=== PATIENT | male | born 1945 | race Caucasian/White ===

== ENCOUNTER → 2016-07-10 | Outpatient (CLI) | payer OTHER ==
--- NOTE | 2016-07-10 15:34 | US ---
Retroperitoneal Sonogram, complete, with duplex Doppler analysis History: Status post correction of bladder diverticulum, poor renal function, laser and surgical TURP , testicular hypofunction Comparison: October 05, 2014 Findings: The kidneys are stable with unchanged smooth cortical thinning involving the lower pole of both kidneys. There is stable mild caliectasis of the left lower pole which is likely related to scar ring. There is no new hydronephrosis or perinephric fluid. There is no obvious stone formation. The r ight kidney measures 10.2 x 5.1 x 4.8 cm and the left kidney 10 x 3.3 x 4.8 cm. Right renal volume = 130 mL thin left renal volume 84 mL's. After voiding there is no change in the degree of left lower p ole mild caliectasis, or other collecting systems of either kidney. The prostate gland measures 4.3 x 2.7 x 3.2 cm . , A small right posterolateral urinary bladder diverticulum is stable and not associa gary with stone formation. There is chronic urinary bladder wall trabeculation. Bilateral ureteral jet s are seen in the urinary bladder. Prevoid volume = 167 mL. Postvoid residual = 189 mL. Impression: Stable since September 2014. Bilateral renal cortical thinning may represent scarring related to prior infection and/or ischemia. If the patient is hypertensive, evaluation for renal artery sten osis might be considered.
== END ==
LOC: FIMAGING 14:04
PROVIDERS: ATTEND Specialist
DX: E29.1 Testicular hypofunction (principal); R93.49 Abnormal radiologic findings on diagnostic imaging of other urinary organs; Z98.890 Other specified postprocedural states

== ENCOUNTER → 2016-08-21 | Outpatient (CLI) | payer OTHER | LOC: FIMAGING 10:58 | PROVIDERS: ATTEND Internal Medicine | DX: R51 Headache (principal); M62.81 Muscle weakness (generalized) ==

== ENCOUNTER 2018-03-08 14:50 | Inpatient (IN) | payer OTHER ==
--- NOTE | 2018-03-08 15:09 | EDPHY ---
H & P Stated Complaint: itchy weepy rash/redness r forearm Time Seen by Provider: 03/08/18 14:57 HPI/ROS: CHIEF COMPLAINT: Itching weeping rash right forearm HISTORY OF PRESENT ILLNESS: 72-year-old male history of chronic kidney dysfunction [facility] complaining of highly pruritic, weeping right wrist lesion since working in his garden. He has noticed new proximally ascending erythematous streaking over the past day. No fever or chills. No nausea or vomiting. No myalgias. No flu-like symptoms. No chest pain. REVIEW OF SYSTEMS: 10 systems reviewed and negative with the exception of the elements mentioned in the history of present illness PAST MEDICAL & SURGICAL HISTORY: Chronic kidney disease, most recent creatinine 2.7. SOCIAL HISTORY: Lives by himself. Nonsmoker PHYSICAL EXAM (Prior to examination, patient consented to physical exam, hands were washed and my usual and customary physical exam procedures followed) 1) GENERAL: Well-developed, well-nourished, alert and oriented. Appears to be in no acute distress. Smiling appears well 2) HEAD: Normocephalic, atraumatic 3) HEENT: Pupils equal, round, reactive to light bilaterally. Sclera anicteric. 4) NECK: Full range of motion, no meningeal signs. 5) LUNGS: Clear auscultation bilaterally, no wheezes, no rhonchi, no retractions. 6) HEART: Regular rate and rhythm, no murmur, no heave, no gallop. 7) ABDOMEN: No guarding, 8) MUSCULOSKELETAL: Right upper extremity: Weeping vesicular rash to right wrist with excoriation noted. Erythema extending to mid bicep. No crepitus. Brisk pulses and capillary refill distally. 9) BACK: No visual or palpable abnormality. 10) SKIN: No rash, no petechiae. 11) Psychiatric: Patient is oriented X 3, there is no agitation. DIFFERENTIAL DIAGNOSIS: In no particular order including but not limited to compartment syndrome, cellulitis, necrotizing fasciitis, contact dermatitis - Personal History Current Tetanus Diphtheria and Acellular Pertussis (TDAP): Yes - Medical/Surgical History Hx Asthma: Yes Hx Chronic Respiratory Disease: No Hx Diabetes: No Hx Cardiac Disease: No Hx Renal Disease: Yes Hx Cirrhosis: No Hx Alcoholism: No Hx HIV/AIDS: No Hx Splenectomy or Spleen Trauma: No Other PMH: kidney failure on kidney transplant list - Social History Smoking Status: Never smoked Constitutional: Initial Vital Signs Temperature (C) 36.5 C 03/08/18 14:53 Heart Rate 70 03/08/18 14:53 Respiratory Rate 17 03/08/18 14:53 Blood Pressure 139/82 H 03/08/18 14:53 O2 Sat (%) 6 L 03/08/18 14:53 O2 Delivery Mode Room Air Allergies/Adverse Reactions: No Known Allergies Allergy (Verified 03/08/18 14:53) Home Medications: Medication Instructions Recorded Furosemide 03/29/14 Lisinopril 03/29/14 Mult Vit 03/29/14 Psyllium Husk 03/29/14 Sodium Bicarbonate 03/29/14 Viagra 03/29/14 Vit D3/Folic Acid/B2/B6/B12 03/29/14 Medical Decision Making ED Course/Re-evaluation: 3:30 p.m.: Patient was also seen and examined by Dr. Noel in the ER. Of concern in this patient is erythema extending proximally from his more than likely poison antione dermatitis site. Recommend checking laboratory studies, IV antibiotics. 3:50 p.m.: Consultation with hospitalist Dr. Negron who will admit patient for right upper extremity cellulitis. Awaiting patient's chemistry results to dose IV antibiotics based on his chronic kidney disease history 4:04 p.m.: Calculated original Cockcroft-Gault creatinine clearance of 23 at this time. Per dosing recommendations for cefazolin, creatinine clearance between 11-34 give usual dose x1 then decrease dose 50%, give [id number] - Data Points Laboratory Results: Laboratory Results 03/08/18 15:33 03/08/18 15:33 03/08/18 03/08/18 15:33 15:33 WBC 12.13 10^3/uL H 10^3/uL (3.80-9.50) RBC 4.89 10^6/uL 10^6/uL (4.40-6.38) Hgb 15.9 g/dL g/dL (13.7-17.5) Hct 47.2 % % (40.0-51.0) MCV 96.5 fL fL (81.5-99.8) MCH 32.5 pg pg (27.9-34.1) MCHC 33.7 g/dL g/dL (32.4-36.7) RDW 14.8 % % (11.5-15.2) Plt Count 281 10^3/uL 10^3/uL (150-400) MPV 9.2 fL fL (8.7-11.7) Neut % (Auto) 77.0 % H % (39.3-74.2) Lymph % (Auto) 12.2 % L % (15.0-45.0) Trigg % (Auto) 6.4 % % (4.5-13.0) Eos % (Auto) 4.0 % % (0.6-7.6) Baso % (Auto) 0.2 % L % (0.3-1.7) Nucleat RBC Rel Count 0.0 % % (0.0-0.2) Absolute Neuts (auto) 9.34 10^3/uL H 10^3/uL (1.70-6.50) Absolute Lymphs (auto) 1.48 10^3/uL 10^3/uL (1.00-3.00) Absolute Monos (auto) 0.78 10^3/uL 10^3/uL (0.30-0.80) Absolute Eos (auto) 0.48 10^3/uL H 10^3/uL (0.03-0.40) Absolute Basos (auto) 0.02 10^3/uL 10^3/uL (0.02-0.10) Absolute Nucleated RBC 0.00 10^3/uL 10^3/uL (0-0.01) Immature Gran % 0.2 % % (0.0-1.1) Immature Gran # 0.03 10^3/uL 10^3/uL (0.00-0.10) Sodium 138 mEq/L mEq/L (135-145) Potassium 4.9 mEq/L mEq/L (3.3-5.0) Chloride 102 mEq/L mEq/L (97-110) Carbon Dioxide 24 mEq/l mEq/l (22-31) Anion Gap 12 mEq/L mEq/L (8-16) BUN 44 mg/dL H mg/dL (7-23) Creatinine 3.0 mg/dL H mg/dL (0.7-1.3) Estimated GFR 21 Glucose 99 mg/dL mg/dL (70-100) Calcium 9.6 mg/dL mg/dL (8.5-10.4) Departure - Departure Disposition: [facility] Inpatient Acute Clinical Impression: Right arm cellulitis Condition: Fair
[2018-03-08 15:42] LABS: PLATELET COUNT 281 10^3/uL (150-400)
[2018-03-08] MEDS ORDERED: HYDROCODONE/APAP 5/325 TAB PO PRN (17:46)
[2018-03-08] MEDS ORDERED: oxyCODONE IR 5 MG TAB PO PRN (17:46)
[2018-03-08] MEDS ORDERED: ONDANSETRON DISINTEGRATING 4 MG TAB PO PRN (17:46)
[2018-03-08] MEDS ORDERED: ACETAMINOPHEN 325 MG TAB PO PRN (17:46)
[2018-03-08] MEDS ORDERED: ONDANSETRON 4 MG/2 ML VIAL IVP PRN (17:46)
--- NOTE | 2018-03-08 17:52 | PDGENHP ---
History and Physical - Chief Complaint RUE redness, swelling - History of Present Illness 72 yo male with h/o CKD due to bladder diverticula presents to ED from his urologist's clinic with RUE redness, pain and swelling. He notes he developed a blistery rash yesterday after watering his garden. No known exposure to poison oak. The rash was pruritic. Today, it became more red and spread proximal to his elbow. He denies fevers, chills or sweats. He saw his urologist for regular follow up who noted a RUE cellulitis and sent the patient to the ED. He gives a h/o shingles. He has a cat, but denies any recent scratches or bites. In the ED, a culture was obtained. Blood cultures were drawn and he received a dose of IV Ancef. He is admitted for further management. History Information - Allergies/Home Medication List Allergies/Adverse Reactions: No Known Allergies Allergy (Verified 03/08/18 14:53) Home Medications: Acetamn/Diphenhydramine 500/25 [Tylenol PM (*)] 2 each PO HS PRN 03/08/18 [Last Taken 03/01/18] Aspirin [Aspirin 81mg (*)] 162 mg PO DAILY 03/08/18 [Last Taken 03/08/18] Atorvastatin Calcium [Lipitor 10 mg (*)] 10 mg PO DAILY 03/08/18 [Last Taken ] Calcitriol [Calcitriol (*)] 0.25 mcg PO MOFR@0900 03/08/18 [Last Taken 03/07/18] Cholecalciferol (Vitamin D3) [Vitamin D3] 2,000 unit PO DAILY 03/08/18 [Last Taken 03/08/18] Fluticasone Nasal [Flonase Nasal Henderson (RX)] 1 sprays NASAL DAILY PRN 03/08/18 [ Last Taken Unknown] Lisinopril [Lisinopril] 5 mg PO DAILY 03/08/18 [Last Taken 03/08/18] Loperamide HCl [Imodium 2 mg (*)] 2 mg PO DAILY 03/08/18 [Last Taken 03/08/18] Psyllium Husk [Fiber Laxative] 1.56 gm PO BID 03/08/18 [Last Taken 03/08/18 08: 00] Sildenafil Citrate [Viagra] 100 mg PO DAILY PRN 03/08/18 [Last Taken Unknown] Sodium Bicarbonate [Na Bicarb] 1,300 mg PO BID 03/08/18 [Last Taken 03/08/18 08: 00] I have personally reviewed and updated: family history, medical history, social history, surgical history - Past Medical History Additional medical history: CKD - baseline Cr ~2.8 per pt. Hyperlipidemia. H/ O bladder diverticula - Surgical History Additional surgical history: bladder surgery - Family History Positive for: non-pertinent - Social History Smoking Status: Never smoked Alcohol Use: Other (one drink daily) Drug Use: None Additional social history: Lives in [place], has cats Review of Systems Review of Systems: ROS: 10pt was reviewed & negative except for what was stated in HPI & below Physical Exam Physical Exam: Temp Pulse Resp BP Pulse Ox 36.5 C 72 16 112/77 96 03/08/18 17:19 03/08/18 17:19 03/08/18 17:19 03/08/18 17:19 03/08/18 17:19 Constitutional: no apparent distress Eyes: PERRL Ears, Nose, Mouth, Throat: moist mucous membranes Cardiovascular: regular rate and rhythym Respiratory: no respiratory distress, clear to auscultation Gastrointestinal: normoactive bowel sounds, soft, non-tender abdomen Skin: warm, other (RUE with erythema extending proximal to elbow with associated edema and clustered vesicular rash on proximal RUE, some oozing vesicles) Musculoskeletal: full muscle strength Neurologic: AAOx3 Psychiatric: interacting appropriately Lab Data & Imaging Review 03/08/18 15:33 03/08/18 15:33 WBC 12.13 10^3/uL (3.80-9.50) H 03/08/18 15:33 RBC 4.89 10^6/uL (4.40-6.38) 03/08/18 15:33 Hgb 15.9 g/dL (13.7-17.5) 03/08/18 15:33 Hct 47.2 % (40.0-51.0) 03/08/18 15:33 MCV 96.5 fL (81.5-99.8) 03/08/18 15:33 MCH 32.5 pg (27.9-34.1) 03/08/18 15:33 MCHC 33.7 g/dL (32.4-36.7) 03/08/18 15:33 RDW 14.8 % (11.5-15.2) 03/08/18 15:33 Plt Count 281 10^3/uL (150-400) 03/08/18 15:33 MPV 9.2 fL (8.7-11.7) 03/08/18 15:33 Neut % (Auto) 77.0 % (39.3-74.2) H 03/08/18 15:33 Lymph % (Auto) 12.2 % (15.0-45.0) L 03/08/18 15:33 Stearns % (Auto) 6.4 % (4.5-13.0) 03/08/18 15: Eos % (Auto) 4.0 % (0.6-7.6) 03/08/18 15:33 Baso % (Auto) 0.2 % (0.3-1.7) L 03/08/18 15: Nucleat RBC Rel Count 0.0 % (0.0-0.2) 03/08/18 15:33 Absolute Neuts (auto) 9.34 10^3/uL (1.70-6.50) H 03/08/18 15:33 Absolute Lymphs (auto) 1.48 10^3/uL (1.00-3.00) 03/08/18 15:33 Absolute Monos (auto) 0.78 10^3/uL (0.30-0.80) 03/08/18 15:33 Absolute Eos (auto) 0.48 10^3/uL (0.03-0.40) H 03/08/18 15:33 Absolute Basos (auto) 0.02 10^3/uL (0.02-0.10) 03/08/18 15:33 Absolute Nucleated RBC 0.00 10^3/uL (0-0.01) 03/08/18 15: Immature Gran % 0.2 % (0.0-1.1) 03/08/18 15: Immature Gran # 0.03 10^3/uL (0.00-0.10) 03/08/18 15:33 Sodium 138 mEq/L (135-145) 03/08/18 15:33 Potassium 4.9 mEq/L (3.3-5.0) 03/08/18 15:33 Chloride 102 mEq/L (97-110) 03/08/18 15:33 Carbon Dioxide 24 mEq/l (22-31) 03/08/18 15:33 Anion Gap 12 mEq/L (8-16) 03/08/18 15:33 BUN 44 mg/dL (7-23) H 03/08/18 15:33 Creatinine 3.0 mg/dL (0.7-1.3) H 03/08/18 15:33 Estimated GFR 21 03/08/18 15:33 Glucose 99 mg/dL (70-100) 03/08/18 15:33 Calcium 9.6 mg/dL (8.5-10.4) 03/08/18 15:33 Assessment & Plan Assessment: RUE cellulitis (Acute) - suspect secondary bacterial infection in setting of vesicular rash, consider poison oak or shingles. -IV Ancef, renally dosed -Blood cultures pending -swab open vesicle for HSV -if increased swelling, consider u/s of RUE to r/o fluid collection CKD - Cr near baseline per pt, ~2.8. Followed by Dr. Kent, on transplant list H/O bladder diverticulum - followed by Dr. Dasilva. Stable. Full code Dispo - admit to inpt, anticipate >48 hrs hospitalization for management of RUE cellulitis extending proximal to elbow
[2018-03-08] MEDS ORDERED: FLUTICASONE NASAL 120 SPRAYS/16 GM MDI EACHNARE PRN (17:57)
[2018-03-08] MEDS ORDERED: ACETAMN/DIPHENHYDRAMINE 500/25MG TAB PO PRN (17:57)
[2018-03-08] MEDS: SODIUM BICARBONATE 650 MG TAB PO SCH (20:23)
[2018-03-08] MEDS: PSYLLIUM METAMUCIL 1 PKT PO SCH ×2 (20:23→20:25)
[2018-03-08] MEDS ORDERED: ceFAZolin 2 GM/DEXTROSE 100 ML IV SCH (23:00)
[2018-03-09 05:34] LABS: PLATELET COUNT 221 10^3/uL (150-400)
[2018-03-09 08:26] VITALS: BP 122/78
[2018-03-09] MEDS: SODIUM BICARBONATE 650 MG TAB PO SCH (08:28)
[2018-03-09] MEDS: PSYLLIUM METAMUCIL 1 PKT PO SCH (08:42)
[2018-03-09] MEDS ORDERED: ATORVASTATIN CALCIUM 10 MG TAB PO SCH (09:00)
[2018-03-09] MEDS ORDERED: LISINOPRIL 5 MG TAB PO SCH (09:00)
[2018-03-09] MEDS ORDERED: CHOLECALCIFEROL VIT D3 2,000 UNITS TAB/CAP PO SCH (09:00)
[2018-03-09] MEDS ORDERED: ASPIRIN 81 MG CHEWABLE TAB PO SCH (09:00)
--- NOTE | 2018-03-09 10:19 | PDDCSUM ---
Discharge Summary Discharge Summary: This is a 72 yo male with hx of CKD who was admitted due to right arm cellulitis. He had been doing some gardening the day prior to admission. He remained afebrile and VSS were stable during his hospitalization. He was given Ancef which he tolerated well and with good results. on the morning of discharge he has minimal right arm erythema with no clear bordering, no induration, no papules or vesicles. He remains afebrile and fees his normal self. He was given the option to cont another day of IV antibiotics vs d/c home with oral abx and he has chosen discharge. As he responded to IV Cefazolin, he will be transitioned to Oral Keflex which will be renally dosed at 250mg po TID x 7 days. He will see his pcp within the next 7 days. Of note, blood cultures and HSV cultures remain negative thus far. Cr is still at baseline DDX: RUE cellulitis (Acute) - CKD - Cr near baseline per pt, ~2.8. Followed by Dr. Kent. No longer on the transplant list H/O bladder diverticulum - followed by Dr. Dasilva. Stable. Exam: NAD AAOX3 RRR MINIMAL RIGHT SIDED ARM ERYTHEMA. NO VISIBLE SWELLING. NO PAPULES OR VESICLES. MEDS: SEE MED REC F/U: PER ABOVE TOTAL TIME SPENT ON D/C IS 35 MINS
--- NOTE | 2018-03-09 10:57 | ASMTLACE ---
LACE Length of stay for Answers: 1 day current admission Acuity / Level of Answers: Yes Care: Did the patient have an inpatient admission? Comorbidities - select Answers: Moderate or severe liver all that apply or renal disease # of Emergency department Answers: 1-2 visits in the last 6 months Score: 9 Date Signed: 03/09/2018 10:56 AM Electronically Signed By:Yari Barry RN
--- NOTE | 2018-03-09 10:58 | ASMTCMCOM ---
CM Note CM Note Notes: Chart reviewed, no needs identified. Pt will dc home independent, CM available for any changes. DC Plan: Independent Date Signed: 03/09/2018 10:58 AM Electronically Signed By:Yari Barry RN
[2018-03-11] MEDS ORDERED: CALCITRIOL 0.25 MCG CAP PO SCH (09:00)
--- NOTE | 2018-03-14 10:49 | PQFORM ---
PHYSICIAN QUERY FORM Needs Your Response This query form is being sent to you to assure this patient record is coded properly. Please respond to the question below: INTENSIVE CARE UNIT NURSE QUESTION: Dr Flores Can you provide a stage for this Patients Chronic Kidney Failure ____ Stage 1 ___ Stage 2 _x__ Stage 3 ___ Stage 4 ___ Stage 5 ___ End Stage ___ Other (Please specify ) ___ Unable to determine Thank You Casie WALDEN Purchasing Manager INSTRUCTIONS FOR RESPONSE: Answer question by clicking on the "Edit Document" button. Move cursor to area below the stars. When complete, hit "Save." Click on the "Sign" button, then click "Sign" again. Type in your PIN and hit "Enter." MTDD
== END 2018-03-09 12:06 | disposition home or self-care (01) | DRG 603 ==
LOC: F3E 18:00
PROVIDERS: ADMIT Hospitalist; ATTEND Hospitalist
DX: L03.113 Cellulitis of right upper limb (principal); N18.3 Chronic kidney disease, stage 3 (moderate); E78.5 Hyperlipidemia, unspecified
CPT/HCPCS: 87529-90; J0690